=== PATIENT | male | born 1985 | race Caucasian/White ===

== ENCOUNTER → 2017-11-09 | Day surgery (SDC) | payer BC, OTHER ==
[2017-11-08 13:17] VITALS: BMI 30.4
[~2017-11-09] MED LIST: Bacitracin Zinc Ointment 30 gm TUBE ONE; CEFAZOLIN/Water 2 GM/20 ML SYRINGE ONE; Fentanyl 100 MCG/2 ML VIAL ONE; Lidocaine 1% (PF) 30 ML VIAL ONE; Lidocaine 1% PF 5 ML VIAL ONE; Midazolam HCl 2 mg/2 ml Vial ONE; PROPOFOL 200 MG/20 ML VIAL ONE
[2017-11-09 08:00] LABS: #Basophils 0.1 thou/uL (0.0-0.2); #Eosinphils 0.4 thou/uL (0.0-0.7); #Lymphocytes 3.5 thou/uL (1.20-3.40); #Monocytes 0.9 thou/uL (0.11-0.59); #Neutrophils 5.4 thou/uL (1.40-6.50); %Basophils 1.2 % (0.0-1.0); %Eosinophils 3.6 % (0.0-10.0); %Monocytes 8.5 % (0.0-10.0); %Neutrophils 52.7 % (42.0-75.0); Anion Gap 10 mmol/L (10-20); BUN (Urea Nitrogen) 13 mg/dL (8.9-20.6); Calc. Creatinine Clearance 136 mL/min (70-130); Calcium 9.4 mg/dL (7.8-10.44); Carbon Dioxide 24 mmol/L (22-29); Chloride 108 mmol/L (98-107); Estimated GFR-MDRD 86; Glucose 92 mg/dL (70-105); Hemoglobin 15.9 g/dL (14.0-18.0); Mean Corpuscular HGB CONC 33.2 g/dL (32.0-36.0); Mean Corpuscular Hemoglobin 30.2 pg (27.0-31.0); Mean Platelet Volume 7.6 fL (7.4-10.4); Platelet Count 229 thou/uL (130-400); RBC Distribution Width 12.1 % (11.5-14.5); Red Blood Cell (RBC) Count 5.27 mill/uL (4.70-6.10); Sodium 138 mmol/L (136-145); White Blood Cell (WBC) Count 10.2 thou/uL (4.8-10.8)
--- NOTE | 2017-11-09 10:19 | OP ---
DATE OF PROCEDURE: 11/09/2017 PREOPERATIVE DIAGNOSIS: Penile lesions. POSTOPERATIVE DIAGNOSIS: Penile lesions. PROCEDURE PERFORMED: Excision and electro destruction of penile lesions. SURGEON: Dr. Gustavo Cuenca ANESTHETIC: General with local. ESTIMATED BLOOD LOSS: None. PATH SENT: Two specimens were large enough to be removed. They were on the right base and left base between half and 1 cm in size. They were excised around their base and sent off as individual speci mens. He had a very tiny lesion on the glans and 3 small lesions all less than 0.2 cm on the shaft. These were destroyed with the electrocautery unit. OPERATIVE TECHNIQUE: After obtaining written and verbal consent from the patient after receiving IV Ancef, he was taken the operating suite. He was placed in the supine position on the treatment table . PlexiPulses were placed on his lower extremities and turned on. He was given a general anesthetic , oral obturator intubation. He was shaved to get some of the hair away from some of these lesions b y the base and then sterilely prepped and draped. 1% Xylocaine without epinephrine was used to provi de local anesthetic underneath the 2 lesions that were larger at the right and left base and we then went ahead and used electrodissection to destroy the other lesions. Using a damp 4 x 4 to brush off the desiccated areas to get further into the base. We then excised with a small skin knife the other 2 lesions, cauterized to obtain hemostasis and secured to the skin edges with a 3-0 chromic U stitch es. At this point, we inspected for hemostasis. There was good hemostasis. We found no other lesio ns that were suspicious. Triple antibiotic ointment was applied. He was awakened and extubated and taken by stretcher to the recovery room.
== END ==
LOC: SDC 06:59
PROVIDERS: ATTEND Urology
DX: N48.89 Other specified disorders of penis (principal)
CPT/HCPCS: 36415; 80048; 85025; 88305; 96374; J2001; J2250; J2704; J3010